=== PATIENT | female | born 1960 | race Two or more races ===

== ENCOUNTER 2016-10-14 01:56 | Emergency (ER) | payer OTHER ==
[~2016-10-14 01:56] MED LIST: ALBUPOW26; AMBIEN; GLYPIZIDE; LAMOTRIGINE; LISIPOW; LORA-205; OMEPRAZOLE; [UNRECOGNIZED DRUG - OTHER]
== END 2016-10-14 02:30 | disposition left against medical advice (07) ==
LOC: EDBD 01:56 → ER 02:01
DX: R55 Syncope and collapse (principal); Z53.21 Procedure and treatment not carried out due to patient leaving prior to being seen by health care provider
CPT/HCPCS: 93005

== ENCOUNTER → 2017-04-05 | Outpatient (CLI) | payer OTHER ==
[~2017-04-05] MED LIST changes: -AMBIEN; +ATOR20TA PO; +CYCL1TAB18 PO; -GLYPIZIDE; +INSUINJ18 BC; +INSUINJ18 SC; +LAMO150T26 PO; -LAMOTRIGINE; +LEVO88TA4 PO; -LISIPOW; +LISIPOW PO; -LORA-205; +LORA-205 PO; +MONT10TA34 OR; -OMEPRAZOLE; +PANT40TA2 PO; +TIOT1AER IN; +TRAZ100T2 PO; +TRAZ50TA2 PO; -[UNRECOGNIZED DRUG - OTHER]
[2017-04-06 09:08] LABS: Hepatitis B Surface Antibody Negative
[2017-04-06 09:33] LABS: Hepatitis B Surface Antigen Negative (Negative)
[2017-04-06 09:40] LABS: Hepatitis B Core IgM Negative; Hepatitis C Antibody Negative (Negative)
[2017-04-06 09:41] LABS: Hepatitis B Core Total AB Negative
[2017-04-06 09:55] LABS: Free T4 (Free Thyroxine) 1.06 ng/dL (0.89-1.76)
== END | disposition home or self-care (01) ==
LOC: LAB 12:27
PROVIDERS: ATTEND Internal Medicine
DX: E11.22 Type 2 diabetes mellitus with diabetic chronic kidney disease (principal); N18.3 Chronic kidney disease, stage 3 (moderate); R10.9 Unspecified abdominal pain
CPT/HCPCS: 36415; 82043; 82565; 82607; 84439; 84443; 84520; 86704; 86705; 86706; 86803; 87340

== ENCOUNTER → 2017-09-11 | Outpatient (CLI) | payer OTHER ==
[2017-09-11 16:14] LABS: Albumin 3.9 g/dL (3.4-5.0); BUN/Creatinine Ratio 10.9; Bilirubin, Total 0.2 mg/dL (0.2-1.0); Potassium 4.4 mmol/L (3.5-5.1); Total Protein 7.5 g/dL (6.4-8.2)
== END | disposition home or self-care (01) ==
LOC: LAB 15:28
PROVIDERS: ATTEND Internal Medicine
DX: I12.9 Hypertensive chronic kidney disease with stage 1 through stage 4 chronic kidney disease, or unspecified chronic kidney disease (principal); E11.22 Type 2 diabetes mellitus with diabetic chronic kidney disease; N18.3 Chronic kidney disease, stage 3 (moderate); E11.40 Type 2 diabetes mellitus with diabetic neuropathy, unspecified; F60.3 Borderline personality disorder; F41.9 Anxiety disorder, unspecified; Z79.899 Other long term (current) drug therapy; Z79.4 Long term (current) use of insulin
CPT/HCPCS: 36415; 80053; 83036; 83970; 84443

== ENCOUNTER 2017-12-05 10:22 | Emergency (ER) | payer OTHER ==
[~2017-12-05] VITALS: Ht 149.9 cm; Wt 67.6 kg
[2017-12-05 11:28] LABS: Urine WBC None Seen /hpf (0 - 5)
[2017-12-05] MEDS ORDERED: methylPREDNISolone SOD SUCC 125 MG/2 ML VL IV ONE (11:30)
[2017-12-05] MEDS ORDERED: IPRATROPIUM BROM 0.5 MG/2.5ML INH SOL NEB ONE (11:30)
[2017-12-05] MEDS ORDERED: ALBUTEROL SULF 2.5 MG/0.5ML(0.5%) NEB SOLN NEB ONE (11:30)
[2017-12-05 11:35] LABS: Basophils # (auto) 0.1 uL; Eosinophils # (auto) 0.3 uL; Eosinophils % (auto) 3.7 % (0.0-7.0); Hematocrit 42.9 % (36.0-46.0); Hemoglobin 13.9 g/dL (12.2-16.2); Lymphocytes # (auto) 1.2 uL; Lymphocytes % (auto) 15.1 % (10.0-50.0); Mean Corpuscular Hgb Conc. 32.3 g/dL (32.0-36.0); Mean Corpuscular Volume 89.8 fL (80.0-100.0); Monocytes # (auto) 0.3 uL; Monocytes % (auto) 4.5 % (0.0-12.0); Neutrophils # (auto) 5.8 uL; Neutrophils % (auto) 75.7 % (37.0-80.0); Platelet Count (auto) 271 10^3/uL (140-450); Red Blood Cells 4.78 10^6/uL (4.0-5.20); Red Cell Distribution Width 15.2 % (11.8-14.3); White Blood Cell 7.7 10^3/uL (4.4-10.8)
[2017-12-05 11:52] LABS: Urine Bacteria NONE SEEN /hpf (None Seen); Urine Blood Negative /uL (Negative); Urine Mucus FEW (None Seen); Urine Specific Gravity 1.024 (1.001-1.035)
[2017-12-05 12:01] LABS: Alanine Aminotransferase 48 U/L (13-56); Albumin 3.9 g/dL (3.4-5.0); Alkaline Phosphatase 108 U/L (45-117); Anion Gap 6 (5-15); Aspartate Aminotransferase 26 U/L (15-37); BUN/Creatinine Ratio 9.6; Bilirubin, Total 0.3 mg/dL (0.2-1.0); Blood Urea Nitrogen 12 mg/dL (7-18); Calcium 8.9 mg/dL (8.5-10.1); Carbon Dioxide 28 mmol/L (21-32); Chloride 105 mmol/L (98-107); GFR African American 57 mL/min; GFR Non-African American 47 mL/min; Glucose 228 mg/dL (74-106); Magnesium 2.2 mg/dL (1.6-2.6); Potassium 4.3 mmol/L (3.5-5.1); Sodium 139 mmol/L (136-145); Total Protein 7.6 g/dL (6.4-8.2)
[2017-12-05 13:06] VITALS: BP 135/77
== END 2017-12-05 14:30 | disposition home or self-care (01) ==
LOC: ER 10:22
DX: J44.9 Chronic obstructive pulmonary disease, unspecified (principal); E11.9 Type 2 diabetes mellitus without complications; E78.5 Hyperlipidemia, unspecified; I10 Essential (primary) hypertension; E07.9 Disorder of thyroid, unspecified; F17.210 Nicotine dependence, cigarettes, uncomplicated
CPT/HCPCS: 36415; 71046; 80053; 81001; 83735; 84484; 85025; 94640; 94761; 96374; 99285; J2930; J7611; J7644

== ENCOUNTER → 2017-12-12 | Outpatient (CLI) | payer OTHER | END | disposition home or self-care (01) | LOC: LAB 11:42 | PROVIDERS: ATTEND Internal Medicine | DX: R07.9 Chest pain, unspecified (principal) | CPT/HCPCS: 36415; 85379 ==

== ENCOUNTER 2018-01-01 11:55 | Inpatient (IN) | payer OTHER ==
[~2018-01-01] VITALS: Ht 149.9 cm; Wt 70.2 kg
[2018-01-01 13:18] LABS: Basophils # (auto) 0.1 uL; Basophils % (auto) 0.8 % (0.0-2.0); Eosinophils # (auto) 0.6 uL; Eosinophils % (auto) 4.4 % (0.0-7.0); Hematocrit 45.5 % (36.0-46.0); Hemoglobin 14.9 g/dL (12.2-16.2); Lymphocytes # (auto) 1.5 uL; Lymphocytes % (auto) 10.6 % (10.0-50.0); Mean Corpuscular Hemoglobin 29.7 pg (28.0-32.0); Mean Corpuscular Hgb Conc. 32.7 g/dL (32.0-36.0); Mean Corpuscular Volume 90.9 fL (80.0-100.0); Monocytes # (auto) 0.9 uL; Monocytes % (auto) 6.7 % (0.0-12.0); Neutrophils % (auto) 77.5 % (37.0-80.0); Platelet Count (auto) 199 10^3/uL (140-450); Red Blood Cells 5.01 10^6/uL (4.0-5.20); Red Cell Distribution Width 14.9 % (11.8-14.3); White Blood Cell 14.2 10^3/uL (4.4-10.8)
[2018-01-01 13:53] LABS: Albumin 3.8 g/dL (3.4-5.0); Anion Gap 6 (5-15); Blood Urea Nitrogen 12 mg/dL (7-18); Calcium 8.9 mg/dL (8.5-10.1); Carbon Dioxide 29 mmol/L (21-32); Chloride 100 mmol/L (98-107); Glucose 281 mg/dL (74-106); Potassium 4.1 mmol/L (3.5-5.1); Sodium 135 mmol/L (136-145)
[2018-01-01 13:59] LABS: Alanine Aminotransferase 44 U/L (13-56); Alkaline Phosphatase 108 U/L (45-117); Aspartate Aminotransferase 17 U/L (15-37); BUN/Creatinine Ratio 8.5; Bilirubin, Total 0.5 mg/dL (0.2-1.0); GFR African American 49 mL/min; GFR Non-African American 41 mL/min; Total Protein 7.3 g/dL (6.4-8.2)
[2018-01-01] MEDS ORDERED: methylPREDNISolone SOD SUCC 125 MG/2 ML VL IV ONE (14:00)
[2018-01-01] MEDS ORDERED: ALBUTEROL SULF 2.5 MG/0.5ML(0.5%) NEB SOLN HHN ONE (14:00)
[2018-01-01] MEDS ORDERED: IPRATROPIUM BROM 0.5 MG/2.5ML INH SOL HHN ONE (14:00)
[2018-01-01] MEDS ORDERED: HYDROcodone-ACET 5/325MG TAB PO PRN (14:30)
[2018-01-01] MEDS ORDERED: DEXTROSE (50%) 50ML SYRG IV PRN ×2 (14:30→19:30)
[2018-01-01] MEDS ORDERED: cefTRIAXone 1GM/50ML D5W 50 ML IV ONE (15:00)
[2018-01-01] MEDS: SODIUM CHLORIDE 0.9% 1,000 ML IV SCH (15:02)
[2018-01-01] MEDS ORDERED: AZITHROMYCIN 500MG/ 250ML 250 ML IV ONE (15:30)
[2018-01-01] MEDS: PANTOPRAZOLE 40 MG TAB PO SCH (15:33)
[2018-01-01] MEDS ORDERED: ACCU-CHEK COMFORT CURVE STRIP VI SCH (17:00)
[2018-01-01] MEDS ORDERED: InsuLIN REG 1unit/0.01ml Soln (100units/ml) SC SCH ×2 (17:00→22:00)
[2018-01-01 17:23] LABS: Urine Bacteria NONE SEEN /hpf (None Seen); Urine Blood Negative /uL (Negative); Urine Specific Gravity 1.024 (1.001-1.035); Urine WBC 11 /hpf (0 - 5)
[2018-01-01] MEDS: ALBUTEROL SULF 2.5 MG/0.5ML(0.5%) NEB SOLN NEB SCH (18:35)
[2018-01-01] MEDS: IPRATROPIUM BROM 0.5 MG/2.5ML INH SOL NEB SCH (18:35)
[2018-01-01 20:00] VITALS: BP 108/63
[2018-01-01] MEDS: ACCU-CHEK COMFORT CURVE STRIP VI SCH ×2 (20:28→23:45)
[2018-01-01] MEDS: InsuLIN REG 1unit/0.01ml Soln (100units/ml) SC SCH ×2 (20:32→23:57)
[2018-01-01 20:55] VITALS: BP 128/78
[2018-01-01] MEDS: methylPREDNISolone SOD SUCC 40 MG/ML VL IV SCH (21:27)
[2018-01-01] MEDS: ATORVASTATIN 20 MG TAB PO SCH (21:28)
[2018-01-01] MEDS: traZODone HCL 50 MG TAB PO SCH (21:28)
[2018-01-01] MEDS: LORazepam 0.5 MG TAB PO PRN (21:28)
[2018-01-01] MEDS: MONTELUKAST SODIUM 10 MG TAB PO SCH (21:29)
[2018-01-01 22:00] VITALS: BP 128/78
[2018-01-01] MEDS: BUDESONIDE (INHALATION) 0.5 MG/2 ML NEB NEB SCH (22:23)
[2018-01-01] MEDS ORDERED: GLIP-116 PO (23:32)
[2018-01-02] MEDS: ACCU-CHEK COMFORT CURVE STRIP VI SCH ×8 (03:59→20:03)
[2018-01-02] MEDS: InsuLIN REG 1unit/0.01ml Soln (100units/ml) SC SCH ×5 (03:59→20:00)
[2018-01-02 05:00] VITALS: BP 127/82
[2018-01-02] MEDS: methylPREDNISolone SOD SUCC 40 MG/ML VL IV SCH ×2 (05:38→21:57)
[2018-01-02] MEDS: IPRATROPIUM BROM 0.5 MG/2.5ML INH SOL NEB SCH ×4 (05:58→18:59)
[2018-01-02] MEDS: ALBUTEROL SULF 2.5 MG/0.5ML(0.5%) NEB SOLN NEB SCH ×4 (05:58→18:59)
[2018-01-02 06:00] LABS: Hematocrit 39.8 % (36.0-46.0); Mean Corpuscular Hemoglobin 29.4 pg (28.0-32.0); Mean Corpuscular Hgb Conc. 32.7 g/dL (32.0-36.0); Mean Corpuscular Volume 89.9 fL (80.0-100.0); Platelet Count (auto) 184 10^3/uL (140-450); Red Blood Cells 4.43 10^6/uL (4.0-5.20); Red Cell Distribution Width 14.5 % (11.8-14.3)
[2018-01-02 06:22] LABS: Basophils % (manual) 0 (0.0-2.0); Blast Cells 0; Calcium 8.7 mg/dL (8.5-10.1); Eosinophils % (manual) 0 (0-7); Metamyelocytes % 0; Myelocytes % 0; Potassium 4.2 mmol/L (3.5-5.1); Promyelocytes % 0; Reactive Lymphocytes 0
[2018-01-02 06:25] LABS: BUN/Creatinine Ratio 12.5
[2018-01-02 06:48] LABS: Band Neutrophils % (manual) 2; Lymphocytes % (manual) 2 (10.0-50.0); Monocytes % (manual) 2 (0-12)
[2018-01-02] MEDS: LEVOTHYROXINE SODIUM 88 MCG TAB PO SCH (07:15)
[2018-01-02] MEDS: cefTRIAXone 1GM/50ML D5W 50 ML IV SCH (08:01)
[2018-01-02 09:00] VITALS: BP 130/80
[2018-01-02] MEDS: ONDANSETRON HCL 4 MG/2 ML VIAL IV PRN ×2 (09:50→17:36)
[2018-01-02] MEDS: LORazepam 0.5 MG TAB PO PRN ×2 (09:50→22:09)
[2018-01-02] MEDS: BUDESONIDE (INHALATION) 0.5 MG/2 ML NEB NEB SCH ×2 (09:52→18:59)
[2018-01-02] MEDS: PANTOPRAZOLE 40 MG TAB PO SCH (09:54)
[2018-01-02] MEDS: AZITHROMYCIN 500MG/ 250ML 250 ML IV SCH (09:56)
[2018-01-02] MEDS: LISINOPRIL 10 MG TAB PO SCH (09:56)
[2018-01-02] MEDS: SODIUM CHLORIDE 0.9% 1,000 ML IV SCH (09:57)
[2018-01-02] MEDS ORDERED: DEXTROSE (50%) 50ML SYRG IV PRN (11:45)
[2018-01-02 13:00] VITALS: BP 156/83
[2018-01-02] MEDS: MORPHINE SULFATE 4 MG/ML SYR/VIAL IV PRN (14:49)
[2018-01-02 17:00] VITALS: BP 143/88
[2018-01-02] MEDS: glipiZIDE 5 MG TAB PO SCH (18:02)
[2018-01-02] MEDS: traZODone HCL 50 MG TAB PO SCH (21:58)
[2018-01-02] MEDS: ATORVASTATIN 20 MG TAB PO SCH (21:58)
[2018-01-02] MEDS: MONTELUKAST SODIUM 10 MG TAB PO SCH (21:58)
[2018-01-02 22:10] VITALS: BP 143/85
[2018-01-03] MEDS: InsuLIN REG 1unit/0.01ml Soln (100units/ml) SC SCH ×7 (00:20→23:59)
[2018-01-03] MEDS: ACCU-CHEK COMFORT CURVE STRIP VI SCH ×12 (00:20→23:58)
[2018-01-03] MEDS: PROMETHAZINE HCL 25 MG/ML 1ML IV PRN ×2 (00:21→12:27)
[2018-01-03] MEDS: SODIUM CHLORIDE 0.9% 1,000 ML IV SCH (03:19)
[2018-01-03 04:36] VITALS: BP 120/86
[2018-01-03] MEDS: IPRATROPIUM BROM 0.5 MG/2.5ML INH SOL NEB SCH ×4 (06:21→18:46)
[2018-01-03] MEDS: ALBUTEROL SULF 2.5 MG/0.5ML(0.5%) NEB SOLN NEB SCH ×4 (06:21→18:46)
[2018-01-03] MEDS: glipiZIDE 5 MG TAB PO SCH ×2 (06:55→17:50)
[2018-01-03] MEDS: LEVOTHYROXINE SODIUM 88 MCG TAB PO SCH (06:56)
[2018-01-03] MEDS: cefTRIAXone 1GM/50ML D5W 50 ML IV SCH (08:01)
[2018-01-03 09:00] VITALS: BP 130/69
[2018-01-03] MEDS: AZITHROMYCIN 500MG/ 250ML 250 ML IV SCH (10:08)
[2018-01-03] MEDS: methylPREDNISolone SOD SUCC 40 MG/ML VL IV SCH (10:08)
[2018-01-03] MEDS: PANTOPRAZOLE 40 MG TAB PO SCH (10:09)
[2018-01-03] MEDS: LISINOPRIL 10 MG TAB PO SCH (10:11)
[2018-01-03] MEDS: BUDESONIDE (INHALATION) 0.5 MG/2 ML NEB NEB SCH ×2 (10:16→18:46)
[2018-01-03] MEDS: LORazepam 0.5 MG TAB PO PRN ×2 (12:28→21:31)
[2018-01-03 13:00] VITALS: BP 126/75
[2018-01-03 17:54] VITALS: BP 130/84
[2018-01-03] MEDS: traZODone HCL 50 MG TAB PO SCH (21:23)
[2018-01-03] MEDS: ATORVASTATIN 20 MG TAB PO SCH (21:23)
[2018-01-03] MEDS: MONTELUKAST SODIUM 10 MG TAB PO SCH (21:24)
[2018-01-03 22:00] VITALS: BP 132/77
[2018-01-04] MEDS: InsuLIN REG 1unit/0.01ml Soln (100units/ml) SC SCH ×6 (04:00→23:56)
[2018-01-04] MEDS: ACCU-CHEK COMFORT CURVE STRIP VI SCH ×6 (04:02→23:56)
[2018-01-04 05:00] VITALS: BP 122/75
[2018-01-04] MEDS: ALBUTEROL SULF 2.5 MG/0.5ML(0.5%) NEB SOLN NEB SCH ×4 (06:00→19:13)
[2018-01-04] MEDS: IPRATROPIUM BROM 0.5 MG/2.5ML INH SOL NEB SCH ×4 (06:00→19:13)
[2018-01-04] MEDS: glipiZIDE 5 MG TAB PO SCH ×2 (06:34→17:50)
[2018-01-04] MEDS: LEVOTHYROXINE SODIUM 88 MCG TAB PO SCH (06:34)
[2018-01-04 08:00] VITALS: BP 108/72
[2018-01-04] MEDS: cefTRIAXone 1GM/50ML D5W 50 ML IV SCH (08:32)
[2018-01-04 08:38] VITALS: BP 108/72
[2018-01-04] MEDS: PANTOPRAZOLE 40 MG TAB PO SCH (09:45)
[2018-01-04] MEDS: AZITHROMYCIN 250 MG TAB PO SCH (09:45)
[2018-01-04] MEDS: predniSONE 20 MG TAB PO SCH (09:45)
[2018-01-04] MEDS: LISINOPRIL 10 MG TAB PO SCH (09:45)
[2018-01-04] MEDS: LORazepam 0.5 MG TAB PO PRN ×2 (10:18→21:31)
[2018-01-04] MEDS: BUDESONIDE (INHALATION) 0.5 MG/2 ML NEB NEB SCH ×2 (10:30→19:13)
[2018-01-04 12:00] VITALS: BP 122/81
[2018-01-04 16:26] VITALS: BP 124/76
[2018-01-04] MEDS: MONTELUKAST SODIUM 10 MG TAB PO SCH (21:30)
[2018-01-04] MEDS: ATORVASTATIN 20 MG TAB PO SCH (21:30)
[2018-01-04] MEDS: traZODone HCL 50 MG TAB PO SCH (21:30)
[2018-01-04 22:00] VITALS: BP 136/80
[2018-01-05] MEDS: ACCU-CHEK COMFORT CURVE STRIP VI SCH ×6 (03:55→23:48)
[2018-01-05] MEDS: InsuLIN REG 1unit/0.01ml Soln (100units/ml) SC SCH ×6 (03:56→23:48)
[2018-01-05 05:00] VITALS: BP 126/69
[2018-01-05] MEDS: glipiZIDE 5 MG TAB PO SCH ×2 (05:48→17:50)
[2018-01-05] MEDS: LEVOTHYROXINE SODIUM 88 MCG TAB PO SCH (05:48)
[2018-01-05] MEDS: ALBUTEROL SULF 2.5 MG/0.5ML(0.5%) NEB SOLN NEB SCH ×6 (05:49→18:24)
[2018-01-05] MEDS: IPRATROPIUM BROM 0.5 MG/2.5ML INH SOL NEB SCH ×6 (05:49→18:24)
[2018-01-05] MEDS: BUDESONIDE (INHALATION) 0.5 MG/2 ML NEB NEB SCH ×3 (05:49→18:24)
[2018-01-05 08:31] VITALS: BP 136/80
[2018-01-05] MEDS: MORPHINE SULFATE 4 MG/ML SYR/VIAL IV PRN (08:43)
[2018-01-05 09:00] VITALS: BP 130/75
[2018-01-05] MEDS: cefTRIAXone 1GM/50ML D5W 50 ML IV SCH (10:20)
[2018-01-05] MEDS: LISINOPRIL 10 MG TAB PO SCH (10:23)
[2018-01-05] MEDS: PANTOPRAZOLE 40 MG TAB PO SCH (10:23)
[2018-01-05] MEDS: AZITHROMYCIN 250 MG TAB PO SCH (10:24)
[2018-01-05] MEDS: predniSONE 20 MG TAB PO SCH (10:25)
[2018-01-05 13:00] VITALS: BP 129/74
[2018-01-05] MEDS: PROMETHAZINE HCL 25 MG/ML 1ML IV PRN (13:17)
[2018-01-05] MEDS ORDERED: DEXTROSE (50%) 50ML SYRG IV PRN (17:30)
[2018-01-05] MEDS ORDERED: InsuLIN REG 1unit/0.01ml Soln (100units/ml) IV ONE (17:45)
[2018-01-05 17:58] VITALS: BP 129/74
[2018-01-05] MEDS: LORazepam 0.5 MG TAB PO PRN (21:13)
[2018-01-05] MEDS: ATORVASTATIN 20 MG TAB PO SCH (21:14)
[2018-01-05] MEDS: MONTELUKAST SODIUM 10 MG TAB PO SCH (21:14)
[2018-01-05] MEDS: traZODone HCL 50 MG TAB PO SCH (21:15)
[2018-01-05 22:05] VITALS: BP 109/74
[2018-01-06] MEDS: InsuLIN REG 1unit/0.01ml Soln (100units/ml) SC SCH ×5 (04:00→17:00)
[2018-01-06] MEDS: ACCU-CHEK COMFORT CURVE STRIP VI SCH ×6 (04:00→23:04)
[2018-01-06 05:10] VITALS: BP 129/80
[2018-01-06] MEDS: LEVOTHYROXINE SODIUM 88 MCG TAB PO SCH (06:31)
[2018-01-06] MEDS: glipiZIDE 5 MG TAB PO SCH ×2 (06:31→17:27)
[2018-01-06] MEDS: IPRATROPIUM BROM 0.5 MG/2.5ML INH SOL NEB SCH ×5 (06:37→18:54)
[2018-01-06] MEDS: ALBUTEROL SULF 2.5 MG/0.5ML(0.5%) NEB SOLN NEB SCH ×5 (06:38→18:54)
[2018-01-06 08:51] VITALS: BP 112/75
[2018-01-06] MEDS: LORazepam 0.5 MG TAB PO PRN ×2 (09:15→19:50)
[2018-01-06] MEDS: cefTRIAXone 1GM/50ML D5W 50 ML IV SCH (09:15)
[2018-01-06] MEDS: AZITHROMYCIN 250 MG TAB PO SCH (09:22)
[2018-01-06] MEDS: PANTOPRAZOLE 40 MG TAB PO SCH (09:22)
[2018-01-06] MEDS: predniSONE 20 MG TAB PO SCH (09:22)
[2018-01-06] MEDS: LISINOPRIL 10 MG TAB PO SCH (09:23)
[2018-01-06] MEDS: BUDESONIDE (INHALATION) 0.5 MG/2 ML NEB NEB SCH ×2 (10:00→19:10)
[2018-01-06 13:05] VITALS: BP 102/68
[2018-01-06] MEDS ORDERED: HYDROcodone-ACET 5/325MG TAB PO PRN (16:45)
[2018-01-06] MEDS ORDERED: MORPHINE SULFATE 4 MG/ML SYR/VIAL IV PRN (16:45)
[2018-01-06] MEDS ORDERED: DEXTROSE (50%) 50ML SYRG IV PRN (16:45)
[2018-01-06 17:00] VITALS: BP 125/76
[2018-01-06] MEDS: traZODone HCL 50 MG TAB PO SCH (21:48)
[2018-01-06] MEDS: ATORVASTATIN 20 MG TAB PO SCH (21:48)
[2018-01-06] MEDS: lamoTRIgine 100 MG TAB PO SCH (21:50)
[2018-01-06] MEDS: MONTELUKAST SODIUM 10 MG TAB PO SCH (21:55)
[2018-01-06] MEDS ORDERED: InsuLIN REG 1unit/0.01ml Soln (100units/ml) SC SCH (22:00)
[2018-01-06 22:20] VITALS: BP 121/83
[2018-01-07 05:04] VITALS: BP 130/77
[2018-01-07] MEDS: ACCU-CHEK COMFORT CURVE STRIP VI SCH ×4 (06:00→22:51)
[2018-01-07] MEDS: LEVOTHYROXINE SODIUM 88 MCG TAB PO SCH (06:12)
[2018-01-07] MEDS: glipiZIDE 5 MG TAB PO SCH ×2 (06:12→17:06)
[2018-01-07] MEDS: InsuLIN REG 1unit/0.01ml Soln (100units/ml) SC SCH ×5 (06:13→22:51)
[2018-01-07] MEDS: ALBUTEROL SULF 2.5 MG/0.5ML(0.5%) NEB SOLN NEB SCH ×4 (06:18→18:56)
[2018-01-07] MEDS: BUDESONIDE (INHALATION) 0.5 MG/2 ML NEB NEB SCH ×2 (06:18→18:57)
[2018-01-07] MEDS: IPRATROPIUM BROM 0.5 MG/2.5ML INH SOL NEB SCH ×4 (06:18→18:56)
[2018-01-07 08:53] VITALS: BP 107/52
[2018-01-07 08:53] LABS: Urine Bacteria NONE SEEN /hpf (None Seen); Urine Blood Negative /uL (Negative); Urine Specific Gravity 1.031 (1.001-1.035); Urine WBC 6 /hpf (0 - 5)
[2018-01-07] MEDS ORDERED: SERTRALINE HCL 50 MG TAB PO SCH (10:00)
[2018-01-07] MEDS: predniSONE 20 MG TAB PO SCH (10:28)
[2018-01-07] MEDS: AZITHROMYCIN 250 MG TAB PO SCH (10:29)
[2018-01-07] MEDS: LISINOPRIL 10 MG TAB PO SCH (10:32)
[2018-01-07] MEDS: LORazepam 0.5 MG TAB PO PRN ×2 (11:16→23:00)
[2018-01-07] MEDS: PANTOPRAZOLE 40 MG TAB PO SCH (11:22)
[2018-01-07 12:48] VITALS: BP 99/53
[2018-01-07 16:54] VITALS: BP 101/58
[2018-01-07] MEDS ORDERED: InsuLIN REG 1unit/0.01ml Soln (100units/ml) IV ONE (17:15)
[2018-01-07] MEDS ORDERED: InsuLIN REG 1unit/0.01ml Soln (100units/ml) SC ONE ×2 (17:15→17:30)
[2018-01-07] MEDS ORDERED: DEXTROSE (50%) 50ML SYRG IV PRN (17:30)
[2018-01-07 22:00] VITALS: BP 116/72
[2018-01-07] MEDS: lamoTRIgine 100 MG TAB PO SCH (22:52)
[2018-01-07] MEDS: traZODone HCL 50 MG TAB PO SCH (22:52)
[2018-01-07] MEDS: ATORVASTATIN 20 MG TAB PO SCH (22:52)
[2018-01-07] MEDS: MONTELUKAST SODIUM 10 MG TAB PO SCH (22:53)
[2018-01-08] MEDS: LORazepam 0.5 MG TAB PO PRN ×3 (00:34→21:50)
[2018-01-08] MEDS: ACCU-CHEK COMFORT CURVE STRIP VI SCH ×6 (00:48→20:51)
[2018-01-08] MEDS: InsuLIN REG 1unit/0.01ml Soln (100units/ml) SC SCH ×6 (00:57→20:50)
[2018-01-08 05:00] VITALS: BP 124/86
[2018-01-08] MEDS: glipiZIDE 5 MG TAB PO SCH ×2 (06:24→18:05)
[2018-01-08] MEDS: ALBUTEROL SULF 2.5 MG/0.5ML(0.5%) NEB SOLN NEB SCH ×4 (06:30→18:36)
[2018-01-08] MEDS: IPRATROPIUM BROM 0.5 MG/2.5ML INH SOL NEB SCH ×4 (06:30→18:36)
[2018-01-08 09:00] VITALS: BP 92/56
[2018-01-08] MEDS: AZITHROMYCIN 250 MG TAB PO SCH (09:25)
[2018-01-08] MEDS: predniSONE 20 MG TAB PO SCH (09:26)
[2018-01-08] MEDS: LISINOPRIL 10 MG TAB PO SCH (09:26)
[2018-01-08] MEDS: PANTOPRAZOLE 40 MG TAB PO SCH (09:26)
[2018-01-08] MEDS: BUDESONIDE (INHALATION) 0.5 MG/2 ML NEB NEB SCH ×2 (10:22→18:36)
[2018-01-08 13:00] VITALS: BP 101/61
[2018-01-08 17:00] VITALS: BP 114/56
[2018-01-08 20:00] VITALS: BP 105/62
[2018-01-08] MEDS: ATORVASTATIN 20 MG TAB PO SCH (21:49)
[2018-01-08] MEDS: lamoTRIgine 100 MG TAB PO SCH (21:49)
[2018-01-08] MEDS: traZODone HCL 50 MG TAB PO SCH (21:49)
[2018-01-08] MEDS: MONTELUKAST SODIUM 10 MG TAB PO SCH (21:49)
[2018-01-08 22:00] VITALS: BP 105/62
[2018-01-09] MEDS: InsuLIN REG 1unit/0.01ml Soln (100units/ml) SC SCH ×4 (00:18→11:41)
[2018-01-09] MEDS: ACCU-CHEK COMFORT CURVE STRIP VI SCH ×4 (00:18→11:41)
[2018-01-09 05:00] VITALS: BP 116/75
[2018-01-09] MEDS: ALBUTEROL SULF 2.5 MG/0.5ML(0.5%) NEB SOLN NEB SCH ×3 (05:55→13:49)
[2018-01-09] MEDS: IPRATROPIUM BROM 0.5 MG/2.5ML INH SOL NEB SCH ×3 (05:55→13:49)
[2018-01-09] MEDS: glipiZIDE 5 MG TAB PO SCH (06:37)
[2018-01-09] MEDS: LEVOTHYROXINE SODIUM 88 MCG TAB PO SCH (06:37)
[2018-01-09 08:00] VITALS: BP 112/61
[2018-01-09 09:00] VITALS: BP 111/78
[2018-01-09] MEDS: BUDESONIDE (INHALATION) 0.5 MG/2 ML NEB NEB SCH (09:51)
[2018-01-09] MEDS ORDERED: predniSONE 20 MG TAB PO SCH (10:00)
[2018-01-09] MEDS: PANTOPRAZOLE 40 MG TAB PO SCH (10:12)
[2018-01-09] MEDS: AZITHROMYCIN 250 MG TAB PO SCH (10:13)
[2018-01-09] MEDS: LISINOPRIL 10 MG TAB PO SCH (10:15)
[2018-01-09] MEDS: LORazepam 0.5 MG TAB PO PRN (10:23)
[2018-01-09 12:15] VITALS: BP 110/69
[2018-01-09 13:00] VITALS: BP 110/69
== END 2018-01-09 14:09 | disposition home or self-care (01) | DRG 193 ==
LOC: ER 11:55 → OVERFLOW 11:56 → WEST WING 20:50
PROVIDERS: ADMIT Internal Medicine; ATTEND Internal Medicine
DX: J18.9 Pneumonia, unspecified organism (principal); J96.20 Acute and chronic respiratory failure, unspecified whether with hypoxia or hypercapnia; J45.902 Unspecified asthma with status asthmaticus; J44.0 Chronic obstructive pulmonary disease with (acute) lower respiratory infection; J44.1 Chronic obstructive pulmonary disease with (acute) exacerbation; N18.3 Chronic kidney disease, stage 3 (moderate); E03.9 Hypothyroidism, unspecified; F41.9 Anxiety disorder, unspecified; F32.9 Major depressive disorder, single episode, unspecified; E11.65 Type 2 diabetes mellitus with hyperglycemia; Z88.8 Allergy status to other drugs, medicaments and biological substances; Z91.012 Allergy to eggs; E11.22 Type 2 diabetes mellitus with diabetic chronic kidney disease; I12.9 Hypertensive chronic kidney disease with stage 1 through stage 4 chronic kidney disease, or unspecified chronic kidney disease; Z87.891 Personal history of nicotine dependence; Z99.81 Dependence on supplemental oxygen; R91.1 Solitary pulmonary nodule; J84.10 Pulmonary fibrosis, unspecified
CPT/HCPCS: 36415; 71046; 71250; 80048; 80053; 81001; 82962; 83036; 83605; 83880; 84443; 84484; 85007; 85025; 85027; 87040; 87086; 94640; 94644; 94660; 96374; 96375; G0378; J0696; J1815; J2405

== ENCOUNTER → 2018-02-21 | Outpatient (CLI) | payer OTHER ==
[~2018-02-21] MED LIST changes: +GLIP-116 PO; -INSUINJ18 BC; -INSUINJ18 SC; -TRAZ50TA2 PO
== END | disposition home or self-care (01) ==
LOC: XYW 09:10
PROVIDERS: ATTEND Internal Medicine Cardiovascular Disease
DX: R00.2 Palpitations (principal)
CPT/HCPCS: 93306

== ENCOUNTER 2018-05-28 14:23 | Emergency (ER) | payer OTHER ==
[~2018-05-28] VITALS: Ht 149.9 cm; Wt 67.1 kg
[2018-05-28] MEDS ORDERED: methylPREDNISolone SOD SUCC 125 MG/2 ML VL IM ONE (15:45)
[2018-05-28] MEDS ORDERED: ALBUTEROL SULF 2.5 MG/0.5ML(0.5%) NEB SOLN NEB ONE (15:45)
[2018-05-28] MEDS ORDERED: IPRATROPIUM BROM 0.5 MG/2.5ML INH SOL NEB ONE (15:45)
[2018-05-28 16:23] LABS: Albumin 4.1 g/dL (3.4-5.0); Anion Gap 5 (5-15); Blood Urea Nitrogen 15 mg/dL (7-18); Calcium 9.4 mg/dL (8.5-10.1); Carbon Dioxide 32 mmol/L (21-32); Chloride 102 mmol/L (98-107); Glucose 79 mg/dL (74-106); Sodium 139 mmol/L (136-145)
[2018-05-28 16:28] LABS: Alanine Aminotransferase 27 U/L (13-56); Alkaline Phosphatase 101 U/L (45-117); Aspartate Aminotransferase 19 U/L (15-37); BUN/Creatinine Ratio 12.8; Bilirubin, Total 0.2 mg/dL (0.2-1.0); GFR African American 61 mL/min; GFR Non-African American 51 mL/min; Total Protein 7.8 g/dL (6.4-8.2)
[2018-05-28 16:44] LABS: Basophils # (auto) 0.1 uL; Basophils % (auto) 1.1 % (0.0-2.0); Eosinophils # (auto) 0.4 uL; Eosinophils % (auto) 6.3 % (0.0-7.0); Hematocrit 44.5 % (36.0-46.0); Hemoglobin 14.3 g/dL (12.2-16.2); Lymphocytes # (auto) 1.3 uL; Lymphocytes % (auto) 18.4 % (10.0-50.0); Mean Corpuscular Hemoglobin 29.1 pg (28.0-32.0); Mean Corpuscular Hgb Conc. 32.2 g/dL (32.0-36.0); Mean Corpuscular Volume 90.5 fL (80.0-100.0); Monocytes # (auto) 0.4 uL; Monocytes % (auto) 5.6 % (0.0-12.0); Neutrophils # (auto) 4.7 uL; Neutrophils % (auto) 68.6 % (37.0-80.0); Nucleated Red Blood Cells % 0.1 %; Platelet Count (auto) 244 10^3/uL (140-450); Red Blood Cells 4.91 10^6/uL (4.0-5.20); Red Cell Distribution Width 14.4 % (11.8-14.3); White Blood Cell 6.9 10^3/uL (4.4-10.8)
[2018-05-28 16:46] LABS: Urine Bacteria NONE SEEN /hpf (None Seen); Urine Blood Negative /uL (Negative); Urine Specific Gravity 1.012 (1.001-1.035); Urine WBC 7 /hpf (0 - 5)
[2018-05-28 21:03] VITALS: BP 131/73
== END 2018-05-28 21:18 | disposition home or self-care (01) ==
LOC: ER 14:25
DX: J44.9 Chronic obstructive pulmonary disease, unspecified (principal); N39.0 Urinary tract infection, site not specified; E11.9 Type 2 diabetes mellitus without complications; K21.9 Gastro-esophageal reflux disease without esophagitis; E78.5 Hyperlipidemia, unspecified; I10 Essential (primary) hypertension; E07.9 Disorder of thyroid, unspecified
CPT/HCPCS: 36415; 71046; 80053; 81001; 83880; 84484; 85025; 94640; 96372; 99284; J2930; J7611; J7644

== ENCOUNTER → 2018-11-26 | Outpatient (CLI) | payer OTHER ==
[~2018-11-26] MED LIST changes: -GLIP-116 PO; +GLIP10TA9 PO
[2018-11-26 11:42] LABS: Basophils # (auto) 0.1 uL; Basophils % (auto) 1.4 % (0.0-2.0); Eosinophils # (auto) 0.3 uL; Eosinophils % (auto) 5.7 % (0.0-7.0); Hematocrit 45.4 % (36.0-46.0); Hemoglobin 14.7 g/dL (12.2-16.2); Lymphocytes # (auto) 1.2 uL; Lymphocytes % (auto) 21.2 % (10.0-50.0); Mean Corpuscular Hemoglobin 28.6 pg (28.0-32.0); Mean Corpuscular Hgb Conc. 32.4 g/dL (32.0-36.0); Mean Corpuscular Volume 88.3 fL (80.0-100.0); Monocytes # (auto) 0.3 uL; Monocytes % (auto) 5.8 % (0.0-12.0); Neutrophils # (auto) 3.7 uL; Neutrophils % (auto) 65.9 % (37.0-80.0); Platelet Count (auto) 234 10^3/uL (140-450); Red Blood Cells 5.15 10^6/uL (4.0-5.20); Red Cell Distribution Width 14.8 % (11.8-14.3); White Blood Cell 5.5 10^3/uL (4.4-10.8)
[2018-11-26 12:13] LABS: Albumin 4.1 g/dL (3.4-5.0); Calcium 9.4 mg/dL (8.5-10.1); Potassium 3.8 mmol/L (3.5-5.1)
[2018-11-26 12:19] LABS: BUN/Creatinine Ratio 10.3; Bilirubin, Total 0.4 mg/dL (0.2-1.0); Total Protein 7.5 g/dL (6.4-8.2)
== END | disposition home or self-care (01) ==
LOC: LAB 10:58
PROVIDERS: ATTEND Internal Medicine
DX: I12.9 Hypertensive chronic kidney disease with stage 1 through stage 4 chronic kidney disease, or unspecified chronic kidney disease (principal); E11.22 Type 2 diabetes mellitus with diabetic chronic kidney disease; N18.3 Chronic kidney disease, stage 3 (moderate); E78.5 Hyperlipidemia, unspecified
CPT/HCPCS: 36415; 80053; 80061; 82043; 83036; 84443; 85025

== ENCOUNTER → 2018-12-10 | Outpatient (CLI) | payer OTHER | END | disposition home or self-care (01) | LOC: LAB 10:52 | PROVIDERS: ATTEND Internal Medicine | DX: I12.9 Hypertensive chronic kidney disease with stage 1 through stage 4 chronic kidney disease, or unspecified chronic kidney disease (principal); E11.22 Type 2 diabetes mellitus with diabetic chronic kidney disease; N18.3 Chronic kidney disease, stage 3 (moderate); E78.5 Hyperlipidemia, unspecified | CPT/HCPCS: 82270 ==

== ENCOUNTER 2019-01-11 08:06 | Day surgery (SDC) | payer OTHER ==
[2019-01-08 12:34] LABS: Basophils # (auto) 0.2 uL; Eosinophils # (auto) 0.3 uL; Eosinophils % (auto) 5.3 % (0.0-7.0); Hematocrit 43.4 % (36.0-46.0); Hemoglobin 14.3 g/dL (12.2-16.2); Lymphocytes # (auto) 1.4 uL; Lymphocytes % (auto) 23.3 % (10.0-50.0); Mean Corpuscular Hemoglobin 29.2 pg (28.0-32.0); Mean Corpuscular Volume 88.5 fL (80.0-100.0); Monocytes # (auto) 0.4 uL; Monocytes % (auto) 6.9 % (0.0-12.0); Neutrophils # (auto) 3.8 uL; Neutrophils % (auto) 61.5 % (37.0-80.0); Platelet Count (auto) 253 10^3/uL (140-450); Red Cell Distribution Width 14.6 % (11.8-14.3); White Blood Cell 6.2 10^3/uL (4.4-10.8)
[2019-01-08 12:47] LABS: INR 0.97 (0.9-1.15); Partial Thromboplastin Time 29.1 sec (23.64-32.05)
[~2019-01-11] VITALS: Ht 149.9 cm; Wt 65.8 kg
[~2019-01-11 08:06] MED LIST changes: +BUPR-40 PO; +FLUT250M2 INH; +INSLANTI SC
[2019-01-11] MEDS ORDERED: SODIUM CHLORIDE LOCK 10 ML ONE (08:17)
[2019-01-11] MEDS ORDERED: diphenhdrAMINE HCL 50 MG/1 ML VL ONE (08:18)
[2019-01-11] MEDS ORDERED: LIDOCAINE VISCOUS 2% 15ML UD ONE (09:03)
[2019-01-11] MEDS: MIDAZOLAM HCL 5 MG/ML-1ML VIAL ONE ×4 (10:27→10:41)
[2019-01-11] MEDS: fentaNYL CITRATE 100 MCG/2 ML VL ONE ×4 (10:27→10:41)
[2019-01-11 11:30] VITALS: BP 132/77
== END 2019-01-11 11:47 | disposition home or self-care (01) ==
LOC: GI 08:06
PROVIDERS: ATTEND Internal Medicine Gastroenterology
DX: Z12.11 Encounter for screening for malignant neoplasm of colon (principal); K57.30 Diverticulosis of large intestine without perforation or abscess without bleeding; K64.8 Other hemorrhoids; K29.50 Unspecified chronic gastritis without bleeding; K29.80 Duodenitis without bleeding; E11.22 Type 2 diabetes mellitus with diabetic chronic kidney disease; I12.9 Hypertensive chronic kidney disease with stage 1 through stage 4 chronic kidney disease, or unspecified chronic kidney disease; N18.3 Chronic kidney disease, stage 3 (moderate); E03.9 Hypothyroidism, unspecified; F17.210 Nicotine dependence, cigarettes, uncomplicated; F41.9 Anxiety disorder, unspecified; F32.9 Major depressive disorder, single episode, unspecified; J44.9 Chronic obstructive pulmonary disease, unspecified; Z88.1 Allergy status to other antibiotic agents; Z88.8 Allergy status to other drugs, medicaments and biological substances; Z79.899 Other long term (current) drug therapy; Z78.0 Asymptomatic menopausal state; Z79.84 Long term (current) use of oral hypoglycemic drugs
CPT/HCPCS: 36415; 43239; 43450; 45378; 82962; 85025; 85610; 85730; 88305; 88342; J1200; J2250; J3010; 99152

== ENCOUNTER 2019-02-06 09:37 | Emergency (ER) | payer OTHER ==
[~2019-02-06] VITALS: Ht 124.5 cm; Wt 65.8 kg
[2019-02-06 09:45] VITALS: BP 116/68
[2019-02-06] MEDS ORDERED: ALBUTEROL SULF 2.5 MG/0.5ML(0.5%) NEB SOLN NEB ONE (10:15)
[2019-02-06] MEDS ORDERED: methylPREDNISolone SOD SUCC 125 MG/2 ML VL IM ONE (10:15)
[2019-02-06] MEDS ORDERED: IPRATROPIUM BROM 0.5 MG/2.5ML INH SOL NEB ONE (10:15)
== END 2019-02-06 11:07 | disposition home or self-care (01) ==
LOC: ER 09:39
DX: J44.0 Chronic obstructive pulmonary disease with (acute) lower respiratory infection (principal); J20.9 Acute bronchitis, unspecified; E11.9 Type 2 diabetes mellitus without complications; K21.9 Gastro-esophageal reflux disease without esophagitis; E78.5 Hyperlipidemia, unspecified; F41.9 Anxiety disorder, unspecified
CPT/HCPCS: 71046; 93005; 94640; 96372; 99283; J2930; J7611; J7644

== ENCOUNTER → 2020-04-30 | Outpatient (CLI) | payer OTHER ==
[~2020-04-30] MED LIST changes: -BUPR-40 PO; +BUPR150T8 PO; +CYCL10TA6 PO; -CYCL1TAB18 PO; -TRAZ100T2 PO; +TRAZ100T3 PO
[2020-04-30 10:50] LABS: Basophils # (auto) 0.1 10 ^3/uL (0-0.2); Basophils % (auto) 1.2 % (0.0-2.0); Eosinophils # (auto) 0.4 10 ^3/uL (0-0.8); Eosinophils % (auto) 5.2 % (0.0-7.0); Hematocrit 42.5 % (36.0-46.0); Lymphocytes # (auto) 1.3 10 ^3/uL (0.4-5.4); Lymphocytes % (auto) 18.5 % (10.0-50.0); Mean Corpuscular Hemoglobin 28.7 pg (28.0-32.0); Mean Corpuscular Volume 87.1 fL (80.0-100.0); Monocytes # (auto) 0.5 10 ^3/uL (0-1.3); Monocytes % (auto) 6.6 % (0.0-12.0); Neutrophils # (auto) 4.9 10 ^3/uL (1.6-8.6); Neutrophils % (auto) 68.5 % (37.0-80.0); Platelet Count (auto) 218 10^3/uL (140-450); Red Blood Cells 4.88 10^6/uL (4.0-5.20); Red Cell Distribution Width 14.9 % (11.8-14.3); White Blood Cell 7.2 10^3/uL (4.4-10.8)
[2020-04-30 11:16] LABS: Albumin 3.6 g/dL (3.4-5.0); Calcium 8.5 mg/dL (8.5-10.1); Potassium 4.2 mmol/L (3.5-5.1)
[2020-04-30 11:20] LABS: BUN/Creatinine Ratio 9.2; Bilirubin, Total 0.3 mg/dL (0.2-1.0); Total Protein 7.1 g/dL (6.4-8.2)
== END | disposition home or self-care (01) ==
LOC: LAB 10:31
PROVIDERS: ATTEND Internal Medicine
DX: E11.9 Type 2 diabetes mellitus without complications (principal); E78.5 Hyperlipidemia, unspecified; I10 Essential (primary) hypertension; J44.9 Chronic obstructive pulmonary disease, unspecified
CPT/HCPCS: 36415; 80053; 80061; 82043; 83036; 84443; 85025

== ENCOUNTER → 2020-05-04 | Outpatient (CLI) | payer OTHER | END | disposition home or self-care (01) | LOC: LAB 17:48 | PROVIDERS: ATTEND Internal Medicine | DX: E11.9 Type 2 diabetes mellitus without complications (principal); I10 Essential (primary) hypertension; J44.9 Chronic obstructive pulmonary disease, unspecified; E78.5 Hyperlipidemia, unspecified | CPT/HCPCS: 82270 ==

== ENCOUNTER → 2020-09-28 | Outpatient (CLI) | payer OTHER ==
[~2020-09-28] MED LIST changes: -MONT10TA34 OR; +MONT10TA42 OR
[2020-09-28 16:54] LABS: Basophils # (auto) 0.1 10 ^3/uL (0-0.2); Basophils % (auto) 0.8 % (0.0-2.0); Eosinophils # (auto) 0.3 10 ^3/uL (0-0.8); Eosinophils % (auto) 3.7 % (0.0-7.0); Hematocrit 41.4 % (36.0-46.0); Hemoglobin 13.7 g/dL (12.2-16.2); Lymphocytes # (auto) 1.4 10 ^3/uL (0.4-5.4); Lymphocytes % (auto) 17.8 % (10.0-50.0); Mean Corpuscular Hemoglobin 28.6 pg (28.0-32.0); Mean Corpuscular Volume 86.5 fL (80.0-100.0); Monocytes # (auto) 0.5 10 ^3/uL (0-1.3); Monocytes % (auto) 5.9 % (0.0-12.0); Neutrophils # (auto) 5.6 10 ^3/uL (1.6-8.6); Neutrophils % (auto) 71.8 % (37.0-80.0); Nucleated Red Blood Cells % 0.1 %; Red Blood Cells 4.78 10^6/uL (4.0-5.20); Red Cell Distribution Width 14.3 % (11.8-14.3); White Blood Cell 7.8 10^3/uL (4.4-10.8)
[2020-09-28 17:07] LABS: Urine Bacteria FEW /hpf (None Seen); Urine Blood Negative /uL (Negative); Urine Specific Gravity 1.012 (1.001-1.035); Urine WBC 75 /hpf (0 - 5); Urine WBC Clumps PRESENT /hpf (None Seen)
[2020-09-28 17:09] LABS: Albumin 3.7 g/dL (3.4-5.0); Calcium 8.5 mg/dL (8.5-10.1); Potassium 3.9 mmol/L (3.5-5.1)
[2020-09-28 17:10] LABS: INR 0.99 (0.9-1.15); Partial Thromboplastin Time 28.8 sec (23.0-31.2)
[2020-09-28 17:13] LABS: BUN/Creatinine Ratio 11.8; Bilirubin, Total 0.3 mg/dL (0.2-1.0)
== END | disposition home or self-care (01) ==
LOC: LAB 16:33
PROVIDERS: ATTEND Orthopaedic Surgery Adult Reconstructive Orthopaedic Surgery
DX: Z01.818 Encounter for other preprocedural examination (principal); Z20.822 Contact with and (suspected) exposure to COVID-19
CPT/HCPCS: 36415; 80053; 81001; 85025; 85610; 85730

== ENCOUNTER → 2021-04-06 | Outpatient (CLI) | payer OTHER ==
[~2021-04-06] MED LIST changes: +BUPIVACAINE HCL 0.25% P/F 10 ML VIAL ONE; +CYCL-839 PO; -CYCL10TA6 PO; +IOHEXOL 300 MG/ML 100ML BOTTLE IJ ONE; +LIDOCAINE 2%HCL (LOCAL ANESTH.) INJ 20ML MDV ONE; +MONT-8 OR; -MONT10TA42 OR; +methylPREDNISolone ACETATE 80 MG/ML VL ONE
== END | disposition home or self-care (01) ==
LOC: XY 13:01
PROVIDERS: ATTEND Orthopaedic Surgery Adult Reconstructive Orthopaedic Surgery
DX: M25.532 Pain in left wrist (principal); F41.9 Anxiety disorder, unspecified; F32.9 Major depressive disorder, single episode, unspecified; J44.9 Chronic obstructive pulmonary disease, unspecified; Z87.891 Personal history of nicotine dependence; Z82.49 Family history of ischemic heart disease and other diseases of the circulatory system; Z83.3 Family history of diabetes mellitus; Z83.49 Family history of other endocrine, nutritional and metabolic diseases
CPT/HCPCS: 20605; 73100; 77002; J1040; J3490; Q9967; 76000

== ENCOUNTER → 2021-07-16 | Outpatient (CLI) | payer OTHER ==
[~2021-07-16] MED LIST changes: -BUPIVACAINE HCL 0.25% P/F 10 ML VIAL ONE; -IOHEXOL 300 MG/ML 100ML BOTTLE IJ ONE; -LIDOCAINE 2%HCL (LOCAL ANESTH.) INJ 20ML MDV ONE; -methylPREDNISolone ACETATE 80 MG/ML VL ONE
[2021-07-16 11:40] LABS: Urine Bacteria NONE SEEN /hpf (None Seen); Urine Blood Negative /uL (Negative); Urine Mucus FEW (None Seen); Urine Specific Gravity 1.027 (1.001-1.035); Urine WBC 181 /hpf (0 - 5)
[2021-07-16 12:04] LABS: Albumin 3.7 g/dL (3.4-5.0); Calcium 9.4 mg/dL (8.5-10.1); Potassium 4.2 mmol/L (3.5-5.1)
[2021-07-16 12:09] LABS: BUN/Creatinine Ratio 13.3; Bilirubin, Total 0.3 mg/dL (0.2-1.0); Total Protein 7.5 g/dL (6.4-8.2)
== END | disposition home or self-care (01) ==
LOC: LAB 11:08
PROVIDERS: ATTEND Internal Medicine
DX: Z00.00 Encounter for general adult medical examination without abnormal findings (principal); Z12.11 Encounter for screening for malignant neoplasm of colon; J44.9 Chronic obstructive pulmonary disease, unspecified; E11.9 Type 2 diabetes mellitus without complications
CPT/HCPCS: 36415; 80053; 80061; 81001; 82570; 83036; 84443

== ENCOUNTER 2021-09-19 19:06 | Inpatient (IN) | payer OTHER ==
[~2021-09-19] VITALS: Ht 149.9 cm; Wt 69.7 kg
[2021-09-19] MEDS ORDERED: methylPREDNISolone SOD SUCC 125 MG/2 ML VL IV ONE (19:30)
[2021-09-19 20:22] LABS: Albumin 3.7 g/dL (3.4-5.0); BUN/Creatinine Ratio 8.9; Calcium 8.5 mg/dL (8.5-10.1); Magnesium 1.8 mg/dL (1.6-2.6); Potassium 3.8 mmol/L (3.5-5.1)
[2021-09-19 20:25] LABS: Bilirubin, Total 0.3 mg/dL (0.2-1.0); Total Protein 7.6 g/dL (6.4-8.2)
[2021-09-19 20:26] LABS: Basophils # (auto) 0.1 10 ^3/uL (0-0.2); Eosinophils # (auto) 0.3 10 ^3/uL (0-0.8); Eosinophils % (auto) 4.6 % (0.0-7.0); Hematocrit 44.3 % (36.0-46.0); Hemoglobin 14.3 g/dL (12.2-16.2); Lymphocytes # (auto) 0.7 10 ^3/uL (0.4-5.4); Lymphocytes % (auto) 13.1 % (10.0-50.0); Mean Corpuscular Hemoglobin 27.2 pg (28.0-32.0); Mean Corpuscular Hgb Conc. 32.4 g/dL (32.0-36.0); Mean Corpuscular Volume 83.9 fL (80.0-100.0); Monocytes # (auto) 0.4 10 ^3/uL (0-1.3); Monocytes % (auto) 7.7 % (0.0-12.0); Neutrophils # (auto) 4.2 10 ^3/uL (1.6-8.6); Neutrophils % (auto) 73.6 % (37.0-80.0); Red Blood Cells 5.28 10^6/uL (4.0-5.20); Red Cell Distribution Width 14.2 % (11.8-14.3); White Blood Cell 5.6 10^3/uL (4.4-10.8)
[2021-09-19] MEDS ORDERED: IPRATROPIUM BROM 0.5 MG/2.5ML INH SOL HHN ONE (20:45)
[2021-09-19] MEDS ORDERED: ALBUTEROL SULF 2.5 MG/0.5ML(0.5%) NEB SOLN HHN ONE (20:45)
[2021-09-19] MEDS ORDERED: NITROGLYCERIN 0.4 MG SL TAB SL PRN (23:00)
[2021-09-19] MEDS ORDERED: ONDANSETRON HCL 4 MG/2 ML VIAL IV PRN (23:00)
[2021-09-19] MEDS ORDERED: TEMAZEPAM 15 MG CAP PO PRN (23:00)
[2021-09-19] MEDS ORDERED: MORPHINE SULFATE INJ 2 MG/ml SYRG IV PRN (23:00)
[2021-09-19] MEDS ORDERED: DEXTROSE (50%) 50ML SYRG IV PRN (23:00)
[2021-09-19] MEDS: InsuLIN REG 1unit/0.01ml Soln (100units/ml) SC SCH (23:52)
[2021-09-19] MEDS: ACCU-CHEK COMFORT CURVE STRIP VI SCH (23:53)
[2021-09-20 04:29] LABS: Urine Bacteria FEW /hpf (None Seen); Urine Blood Negative /uL (Negative); Urine Specific Gravity 1.007 (1.001-1.035); Urine WBC 128 /hpf (0 - 5)
[2021-09-20 04:32] LABS: Basophils # (auto) 0.1 10 ^3/uL (0-0.2); Eosinophils # (auto) 0 10 ^3/uL (0-0.8); Eosinophils % (auto) 0.1 % (0.0-7.0); Hematocrit 44.4 % (36.0-46.0); Hemoglobin 14.4 g/dL (12.2-16.2); Lymphocytes # (auto) 0.3 10 ^3/uL (0.4-5.4); Lymphocytes % (auto) 3.6 % (10.0-50.0); Mean Corpuscular Hemoglobin 27.4 pg (28.0-32.0); Mean Corpuscular Hgb Conc. 32.4 g/dL (32.0-36.0); Mean Corpuscular Volume 84.6 fL (80.0-100.0); Monocytes # (auto) 0.2 10 ^3/uL (0-1.3); Monocytes % (auto) 2.3 % (0.0-12.0); Neutrophils # (auto) 6.9 10 ^3/uL (1.6-8.6); Red Blood Cells 5.25 10^6/uL (4.0-5.20); Red Cell Distribution Width 14.3 % (11.8-14.3); White Blood Cell 7.4 10^3/uL (4.4-10.8)
[2021-09-20 04:51] LABS: BUN/Creatinine Ratio 9.8; Calcium 8.6 mg/dL (8.5-10.1); Potassium 4.4 mmol/L (3.5-5.1)
[2021-09-20] MEDS: ACCU-CHEK COMFORT CURVE STRIP VI SCH ×3 (05:39→18:30)
[2021-09-20] MEDS: InsuLIN REG 1unit/0.01ml Soln (100units/ml) SC SCH ×3 (05:46→18:42)
[2021-09-20] MEDS: ALBUTEROL SULF 2.5 MG/0.5ML(0.5%) NEB SOLN NEB SCH ×4 (06:01→21:57)
[2021-09-20] MEDS: IPRATROPIUM BROM 0.5 MG/2.5ML INH SOL NEB SCH ×4 (06:02→21:57)
[2021-09-20] MEDS: LEVOTHYROXINE SODIUM 88 MCG TAB PO SCH (06:43)
[2021-09-20] MEDS: buPROPion HCL 75 MG TAB PO SCH ×2 (06:43→18:32)
[2021-09-20] MEDS: ACETAMINOPHEN 325 MG TAB PO PRN ×2 (08:12→16:43)
[2021-09-20] MEDS ORDERED: methylPREDNISolone SOD SUCC 125 MG/2 ML VL IV SCH (10:00)
[2021-09-20] MEDS: ENOXAPARIN SOD 40 MG/0.4 ML SYRINGE SC SCH (10:06)
[2021-09-20] MEDS: LISINOPRIL 10 MG TAB PO SCH (10:07)
[2021-09-20] MEDS ORDERED: IPRATROPIUM BROM 0.5 MG/2.5ML INH SOL NEB PRN (15:00)
[2021-09-20] MEDS ORDERED: ALBUTEROL SULF 2.5 MG/0.5ML(0.5%) NEB SOLN NEB PRN (15:00)
[2021-09-20] MEDS ORDERED: LORazepam 0.5 MG TAB PO PRN (15:00)
[2021-09-20] MEDS: BUDESONIDE (INHALATION) 0.5 MG/2 ML NEB NEB SCH (17:35)
[2021-09-20 18:20] VITALS: BP 147/85
[2021-09-20 18:51] VITALS: BP 149/82
[2021-09-20 22:00] VITALS: BP 148/83
[2021-09-20] MEDS: lamoTRIgine 100 MG TAB PO SCH (22:14)
[2021-09-20] MEDS: methylPREDNISolone SOD SUCC 125 MG/2 ML VL IV SCH (22:14)
[2021-09-20] MEDS: ATORVASTATIN 20 MG TAB PO SCH ×2 (22:15)
[2021-09-20] MEDS: MONTELUKAST SODIUM 10 MG TAB PO SCH (22:31)
[2021-09-20] MEDS: INSULIN LANTUS (GLARGINE) 1 /0.01ml (100units/ml) SC SCH (22:33)
[2021-09-21] MEDS: ACCU-CHEK COMFORT CURVE STRIP VI SCH ×5 (00:17→23:50)
[2021-09-21] MEDS: InsuLIN REG 1unit/0.01ml Soln (100units/ml) SC SCH ×5 (00:24→23:50)
[2021-09-21] MEDS: IPRATROPIUM BROM 0.5 MG/2.5ML INH SOL NEB SCH ×6 (03:11→22:32)
[2021-09-21] MEDS: ALBUTEROL SULF 2.5 MG/0.5ML(0.5%) NEB SOLN NEB SCH ×3 (03:11→10:28)
[2021-09-21 05:00] VITALS: BP 125/84
[2021-09-21 05:19] LABS: Basophils # (auto) 0 10 ^3/uL (0-0.2); Basophils % (auto) 0.1 % (0.0-2.0); Eosinophils # (auto) 0 10 ^3/uL (0-0.8); Hematocrit 43.4 % (36.0-46.0); Hemoglobin 14.2 g/dL (12.2-16.2); Lymphocytes # (auto) 0.4 10 ^3/uL (0.4-5.4); Lymphocytes % (auto) 4.3 % (10.0-50.0); Mean Corpuscular Hemoglobin 27.4 pg (28.0-32.0); Mean Corpuscular Hgb Conc. 32.7 g/dL (32.0-36.0); Mean Corpuscular Volume 83.9 fL (80.0-100.0); Monocytes # (auto) 0.4 10 ^3/uL (0-1.3); Monocytes % (auto) 4.4 % (0.0-12.0); Neutrophils # (auto) 8.9 10 ^3/uL (1.6-8.6); Neutrophils % (auto) 91.2 % (37.0-80.0); Red Blood Cells 5.17 10^6/uL (4.0-5.20); Red Cell Distribution Width 14.5 % (11.8-14.3); White Blood Cell 9.7 10^3/uL (4.4-10.8)
[2021-09-21 05:27] LABS: Calcium 9.2 mg/dL (8.5-10.1); Potassium 3.9 mmol/L (3.5-5.1)
[2021-09-21 05:31] LABS: BUN/Creatinine Ratio 17.1; Magnesium 2.2 mg/dL (1.6-2.6)
[2021-09-21] MEDS: LEVOTHYROXINE SODIUM 88 MCG TAB PO SCH (06:27)
[2021-09-21] MEDS: buPROPion HCL 75 MG TAB PO SCH ×2 (06:27→18:33)
[2021-09-21 09:00] VITALS: BP 123/72
[2021-09-21] MEDS: methylPREDNISolone SOD SUCC 125 MG/2 ML VL IV SCH (09:26)
[2021-09-21] MEDS: ENOXAPARIN SOD 40 MG/0.4 ML SYRINGE SC SCH (09:27)
[2021-09-21] MEDS: LISINOPRIL 10 MG TAB PO SCH (09:27)
[2021-09-21] MEDS ORDERED: PANTOPRAZOLE 40 MG TAB PO SCH (10:00)
[2021-09-21] MEDS: BUDESONIDE (INHALATION) 0.5 MG/2 ML NEB NEB SCH ×2 (10:28→22:33)
[2021-09-21 13:00] VITALS: BP 133/75
[2021-09-21] MEDS: LEVALBUTEROL HCL 1.25 MG/3 ML NEB NEB SCH ×3 (14:38→22:32)
[2021-09-21 16:37] VITALS: BP 119/83
[2021-09-21] MEDS: SUCRALFATE 1 GM TAB PO SCH ×2 (17:32→22:44)
[2021-09-21 22:00] VITALS: BP 133/87
[2021-09-21] MEDS: MONTELUKAST SODIUM 10 MG TAB PO SCH (22:44)
[2021-09-21] MEDS: ATORVASTATIN 20 MG TAB PO SCH (22:44)
[2021-09-21] MEDS: PANTOPRAZOLE 40 MG TAB PO SCH (22:44)
[2021-09-21] MEDS: lamoTRIgine 100 MG TAB PO SCH (22:45)
[2021-09-21] MEDS: INSULIN LANTUS (GLARGINE) 1 /0.01ml (100units/ml) SC SCH (23:49)
[2021-09-22] MEDS: LEVALBUTEROL HCL 1.25 MG/3 ML NEB NEB SCH ×3 (02:47→17:57)
[2021-09-22 05:00] VITALS: BP 136/77
[2021-09-22 05:45] LABS: Calcium 8.9 mg/dL (8.5-10.1); Potassium 4.2 mmol/L (3.5-5.1)
[2021-09-22 05:48] LABS: BUN/Creatinine Ratio 18.8
[2021-09-22] MEDS: ACCU-CHEK COMFORT CURVE STRIP VI SCH ×3 (06:00→18:00)
[2021-09-22] MEDS: IPRATROPIUM BROM 0.5 MG/2.5ML INH SOL NEB SCH ×2 (06:19→17:58)
[2021-09-22] MEDS: BUDESONIDE (INHALATION) 0.5 MG/2 ML NEB NEB SCH ×2 (06:19→17:58)
[2021-09-22] MEDS: LEVOTHYROXINE SODIUM 88 MCG TAB PO SCH (06:33)
[2021-09-22] MEDS: InsuLIN REG 1unit/0.01ml Soln (100units/ml) SC SCH ×3 (06:33→18:00)
[2021-09-22] MEDS: SUCRALFATE 1 GM TAB PO SCH ×3 (06:34→17:00)
[2021-09-22] MEDS: buPROPion HCL 75 MG TAB PO SCH (06:35)
[2021-09-22] MEDS: PANTOPRAZOLE 40 MG TAB PO SCH (08:56)
[2021-09-22] MEDS: LISINOPRIL 10 MG TAB PO SCH (08:56)
[2021-09-22] MEDS: ENOXAPARIN SOD 40 MG/0.4 ML SYRINGE SC SCH (08:58)
[2021-09-22 09:06] VITALS: BP 120/81
[2021-09-22] MEDS ORDERED: predniSONE 20 MG TAB PO SCH (10:00)
[2021-09-22 13:00] VITALS: BP 125/64
[2021-09-22] MEDS ORDERED: ALBUAER3 IN (13:38)
[2021-09-22] MEDS ORDERED: LISIPOW PO (13:38)
[2021-09-22] MEDS ORDERED: PRED20TA2 PO (13:38)
[2021-09-22 15:57] VITALS: BP 125/64
[2021-09-22 16:28] VITALS: BP 137/84
== END 2021-09-22 18:45 | disposition home or self-care (01) | DRG 189 ==
LOC: ER 19:06 → TELE 22:54 → TELE-WESTW 09-20 18:23
PROVIDERS: ADMIT Nurse Practitioner; ATTEND Internal Medicine
DX: J96.20 Acute and chronic respiratory failure, unspecified whether with hypoxia or hypercapnia (principal); J44.1 Chronic obstructive pulmonary disease with (acute) exacerbation; N18.30 Chronic kidney disease, stage 3 unspecified; E11.22 Type 2 diabetes mellitus with diabetic chronic kidney disease; E66.9 Obesity, unspecified; E78.5 Hyperlipidemia, unspecified; E89.0 Postprocedural hypothyroidism; F41.9 Anxiety disorder, unspecified; F32.A Depression, unspecified; Z20.822 Contact with and (suspected) exposure to COVID-19; K76.0 Fatty (change of) liver, not elsewhere classified; Z88.8 Allergy status to other drugs, medicaments and biological substances; Z68.31 Body mass index [BMI] 31.0-31.9, adult; Z83.3 Family history of diabetes mellitus; I12.9 Hypertensive chronic kidney disease with stage 1 through stage 4 chronic kidney disease, or unspecified chronic kidney disease; Z79.4 Long term (current) use of insulin
CPT/HCPCS: 36415; 71045; 80048; 80053; 80061; 81001; 82962; 83036; 83605; 83735; 83880; 84443; 84484; 85025; 85379; 87040; 87086; 93005; 94640; 96374; 96375; 96376; G0378; J1815; J2405

== ENCOUNTER → 2021-11-23 | Outpatient (CLI) | payer OTHER ==
[~2021-11-23] MED LIST changes: +ALBUAER3 IN; +PRED20TA2 PO
== END | disposition home or self-care (01) ==
LOC: RT 09:56
PROVIDERS: ATTEND Internal Medicine Pulmonary Disease
DX: J44.9 Chronic obstructive pulmonary disease, unspecified (principal); R06.00 Dyspnea, unspecified
CPT/HCPCS: 94060

== ENCOUNTER → 2022-01-26 | Emergency (ER) | payer OTHER | END | disposition left against medical advice (07) | LOC: ER 13:18 | DX: R05.9 Cough, unspecified (principal); Z53.21 Procedure and treatment not carried out due to patient leaving prior to being seen by health care provider ==

== ENCOUNTER 2022-01-30 20:31 | Emergency (ER) | payer OTHER ==
[~2022-01-30] VITALS: Ht 149.9 cm; Wt 65.0 kg
[2022-01-30] MEDS ORDERED: IPRATROPIUM BROM 0.5 MG/2.5ML INH SOL NEB ONE (22:15)
[2022-01-30] MEDS ORDERED: predniSONE 20 MG TAB PO ONE (22:15)
[2022-01-30] MEDS ORDERED: ALBUTEROL SULF 2.5 MG/0.5ML(0.5%) NEB SOLN NEB ONE (22:15)
[2022-01-30 22:51] LABS: Basophils # (auto) 0.1 10 ^3/uL (0-0.2); Basophils % (auto) 0.5 % (0.0-2.0); Eosinophils # (auto) 0.1 10 ^3/uL (0-0.8); Eosinophils % (auto) 0.5 % (0.0-7.0); Hematocrit 42.1 % (36.0-46.0); Hemoglobin 13.4 g/dL (12.2-16.2); Lymphocytes # (auto) 2.7 10 ^3/uL (0.4-5.4); Mean Corpuscular Hemoglobin 27.8 pg (28.0-32.0); Mean Corpuscular Hgb Conc. 31.9 g/dL (32.0-36.0); Mean Corpuscular Volume 87.2 fL (80.0-100.0); Monocytes # (auto) 0.6 10 ^3/uL (0-1.3); Monocytes % (auto) 5.2 % (0.0-12.0); Neutrophils # (auto) 7.9 10 ^3/uL (1.6-8.6); Neutrophils % (auto) 69.8 % (37.0-80.0); Red Blood Cells 4.83 10^6/uL (4.0-5.20); Red Cell Distribution Width 14.6 % (11.8-14.3); White Blood Cell 11.3 10^3/uL (4.4-10.8)
[2022-01-30 23:14] LABS: Albumin 3.4 g/dL (3.4-5.0); Magnesium 1.9 mg/dL (1.6-2.6); Potassium 3.7 mmol/L (3.5-5.1)
[2022-01-30 23:16] LABS: BUN/Creatinine Ratio 18.8
[2022-01-30 23:19] LABS: Bilirubin, Total 0.3 mg/dL (0.2-1.0); Total Protein 6.6 g/dL (6.4-8.2)
[2022-01-30] MEDS ORDERED: PRED20TA2 PO (23:45)
[2022-01-31 00:08] VITALS: BP 159/68
== END 2022-01-31 00:09 | disposition home or self-care (01) ==
LOC: ER 20:31
DX: J44.1 Chronic obstructive pulmonary disease with (acute) exacerbation (principal); Z20.822 Contact with and (suspected) exposure to COVID-19
CPT/HCPCS: 36415; 71045; 80053; 83735; 83880; 84484; 85025; 87426; 87804; 93005; 94640; 99285; J7512; J7644

== ENCOUNTER 2022-10-18 18:13 | Emergency (ER) | payer OTHER ==
[~2022-10-18] VITALS: Ht 149.9 cm; Wt 67.7 kg
[~2022-10-18 18:13] MED LIST changes: +TRAZ-228 PO; -TRAZ100T3 PO
[2022-10-18 18:23] VITALS: BP 147/82; PULSE 96; RESP 16; O2SAT 95
[2022-10-18 21:00] LABS: Basophils # (auto) 0.1 10 ^3/uL (0-0.2); Basophils % (auto) 1.8 % (0.0-2.0); Eosinophils # (auto) 0.3 10 ^3/uL (0-0.8); Eosinophils % (auto) 3.9 % (0.0-7.0); Hematocrit 43.3 % (36.0-46.0); Lymphocytes # (auto) 1.7 10 ^3/uL (0.4-5.4); Lymphocytes % (auto) 22.5 % (10.0-50.0); Mean Corpuscular Hemoglobin 27.9 pg (28.0-32.0); Mean Corpuscular Hgb Conc. 32.3 g/dL (32.0-36.0); Mean Corpuscular Volume 86.4 fL (80.0-100.0); Monocytes # (auto) 0.4 10 ^3/uL (0-1.3); Monocytes % (auto) 5.2 % (0.0-12.0); Neutrophils # (auto) 5.1 10 ^3/uL (1.6-8.6); Neutrophils % (auto) 66.6 % (37.0-80.0); Red Blood Cells 5.01 10^6/uL (4.0-5.20); Red Cell Distribution Width 15.7 % (11.8-14.3); White Blood Cell 7.6 10^3/uL (4.4-10.8)
[2022-10-18 21:18] LABS: Albumin 3.4 g/dL (3.4-5.0); Calcium 8.5 mg/dL (8.5-10.1); Potassium 3.6 mmol/L (3.5-5.1)
[2022-10-18 21:21] LABS: BUN/Creatinine Ratio 11.7 (10.0-20.0); Bilirubin, Total 0.2 mg/dL (0.2-1.0)
== END 2022-10-19 00:45 | disposition left against medical advice (07) ==
LOC: ER 18:13
DX: R10.30 Lower abdominal pain, unspecified (principal); N89.8 Other specified noninflammatory disorders of vagina; B37.89 Other sites of candidiasis; E11.22 Type 2 diabetes mellitus with diabetic chronic kidney disease; I12.9 Hypertensive chronic kidney disease with stage 1 through stage 4 chronic kidney disease, or unspecified chronic kidney disease; N18.9 Chronic kidney disease, unspecified; J44.9 Chronic obstructive pulmonary disease, unspecified; K21.9 Gastro-esophageal reflux disease without esophagitis; E78.5 Hyperlipidemia, unspecified; Z88.1 Allergy status to other antibiotic agents; Z88.6 Allergy status to analgesic agent; Z88.8 Allergy status to other drugs, medicaments and biological substances; Z91.012 Allergy to eggs
CPT/HCPCS: 36415; 74176; 80053; 85025

== ENCOUNTER → 2022-12-22 | Outpatient (CLI) | payer OTHER ==
[2022-12-22 13:48] LABS: Alanine Aminotransferase 23 U/L (7-40); Albumin 4.6 g/dL (3.2-4.8); Alkaline Phosphatase 107 U/L (46-116); Anion Gap 3 (5-15); Aspartate Aminotransferase 16 U/L (13-40); BUN/Creatinine Ratio 6.7 (10.0-20.0); Blood Urea Nitrogen 8 mg/dL (9-23); Calcium 9.5 mg/dL (8.5-10.1); Carbon Dioxide 31 mmol/L (20-30); Chloride 103 mmol/L (98-107); Cholesterol 157 mg/dL (< 200); Glucose 243 mg/dL (74-106); HDL Cholesterol 49 mg/dL (40-59); LDL Cholesterol 90 mg/dL (< 100); Potassium 4.5 mmol/L (3.5-5.1); Sodium 137 mmol/L (136-145); Triglycerides 122 mg/dL (< 150)
[2022-12-22 13:49] LABS: Bilirubin, Total 0.4 mg/dL (0.2-1.0); Creatinine, Urine 145.3 mg/dL (30.0-125.0); Total Protein 7.4 g/dL (5.7-8.2)
[2022-12-22 13:53] LABS: Folate (Folic Acid) > 24.00 ng/mL (>5.38)
[2022-12-22 13:55] LABS: Urine Bacteria NONE SEEN /hpf (None Seen); Urine Blood Negative /uL (Negative); Urine Clarity Clear (Clear); Urine Color Yellow (Yellow); Urine Protein, UAD TRACE (Negative); Urine Specific Gravity 1.022 (1.001-1.035); Urine Urobilinogen Normal (Negative); Urine WBC 3 /hpf (0 - 5); Urine pH 5.5 (5.0-8.0)
== END | disposition home or self-care (01) ==
LOC: LAB 13:09
PROVIDERS: ATTEND Internal Medicine
DX: E11.9 Type 2 diabetes mellitus without complications (principal); I10 Essential (primary) hypertension; R91.8 Other nonspecific abnormal finding of lung field
CPT/HCPCS: 36415; 80053; 80061; 81001; 82043; 82140; 82570; 82607; 82746; 83036; 84443

== ENCOUNTER → 2023-02-09 | Outpatient (CLI) | payer OTHER ==
[2023-02-09 16:18] LABS: Folate (Folic Acid) 20.59 ng/mL (>5.38)
[2023-02-10 05:07] LABS: RPR Non Reactive (Non Reactive)
== END | disposition home or self-care (01) ==
LOC: LAB 14:48
PROVIDERS: ATTEND Internal Medicine
DX: E11.22 Type 2 diabetes mellitus with diabetic chronic kidney disease (principal); N18.30 Chronic kidney disease, stage 3 unspecified; M79.672 Pain in left foot; R41.3 Other amnesia
CPT/HCPCS: 82607; 82746; 86592

== ENCOUNTER 2023-03-15 13:06 | Day surgery (SDC) | payer OTHER ==
[2023-03-09 11:01] LABS: Basophils # (auto) 0.1 10 ^3/uL (0-0.2); Basophils % (auto) 0.8 % (0.0-2.0); Eosinophils # (auto) 0.2 10 ^3/uL (0-0.8); Hemoglobin 13.9 g/dL (12.2-16.2); Lymphocytes # (auto) 1.4 10 ^3/uL (0.4-5.4); Lymphocytes % (auto) 13.8 % (10.0-50.0); Mean Corpuscular Hemoglobin 27.1 pg (28.0-32.0); Mean Corpuscular Hgb Conc. 32.3 g/dL (32.0-36.0); Mean Corpuscular Volume 83.7 fL (80.0-100.0); Monocytes # (auto) 0.5 10 ^3/uL (0-1.3); Monocytes % (auto) 4.9 % (0.0-12.0); Neutrophils # (auto) 7.7 10 ^3/uL (1.6-8.6); Neutrophils % (auto) 78.5 % (37.0-80.0); Red Blood Cells 5.14 10^6/uL (4.0-5.20); White Blood Cell 9.8 10^3/uL (4.4-10.8)
[2023-03-09 11:24] LABS: INR 1.02 (0.9-1.15); Partial Thromboplastin Time 30.2 SEC (24.5-34.5); Prothrombin Time 10.7 sec (9.3-11.8)
[2023-03-09 11:43] LABS: Alanine Aminotransferase 24 U/L (7-40); Albumin 4.7 g/dL (3.2-4.8); Alkaline Phosphatase 90 U/L (46-116); Anion Gap 10 (5-15); Aspartate Aminotransferase 20 U/L (13-40); BUN/Creatinine Ratio 5.6 (10.0-20.0); Blood Urea Nitrogen 7 mg/dL (9-23); Carbon Dioxide 26 mmol/L (20-30); Chloride 103 mmol/L (98-107); Glucose 145 mg/dL (74-106); Sodium 139 mmol/L (136-145)
[2023-03-09 11:44] LABS: Bilirubin, Total 0.4 mg/dL (0.2-1.0); Total Protein 7.3 g/dL (5.7-8.2)
[~2023-03-15] VITALS: Ht 149.9 cm; Wt 60.3 kg
[~2023-03-15 13:06] MED LIST changes: -ALBUPOW26; +CLON0.5T4 PO; +DAPA1TAB4 PO; +DICY10CA PO; +FLUT1AER17 IN; -FLUT250M2 INH; +GING550C4 PO; -LAMO150T26 PO; -LORA-205 PO; +MILK175C5 PO; -PRED20TA2 PO; +ROFL1TAB2 PO; -TIOT1AER IN; +VITA-89 PO
[2023-03-15] MEDS ORDERED: SODIUM CHLORIDE LOCK 10 ML ONE (13:51)
[2023-03-15] MEDS ORDERED: LIDOCAINE VISCOUS 2% 15ML UD ONE (13:51)
[2023-03-15 15:12] VITALS: PULSE 93; RESP 13; O2SAT 100
[2023-03-15] MEDS: MIDAZOLAM HCL 5 MG/ML-1ML VIAL ONE ×2 (15:21→15:24)
[2023-03-15] MEDS: diphenhdrAMINE HCL 50 MG/1 ML VL ONE ×2 (15:21→15:23)
[2023-03-15] MEDS: fentaNYL CITRATE 100 MCG/2 ML VL ONE ×2 (15:21→15:24)
[2023-03-15 15:33] VITALS: O2SAT 97
[2023-03-15 16:14] VITALS: BP 124/69; PULSE 85; RESP 15; O2SAT 94
== END 2023-03-15 16:28 | disposition home or self-care (01) ==
LOC: GI 13:06
PROVIDERS: ATTEND Internal Medicine Gastroenterology
DX: K44.9 Diaphragmatic hernia without obstruction or gangrene (principal); R10.9 Unspecified abdominal pain; K31.84 Gastroparesis; K29.50 Unspecified chronic gastritis without bleeding; E11.9 Type 2 diabetes mellitus without complications; Z79.84 Long term (current) use of oral hypoglycemic drugs
CPT/HCPCS: 36415; 43239; 80053; 82962; 85025; 85610; 85730; 88305; 88312; 88342; J1200; J2250; J3010; J7030

== ENCOUNTER → 2023-03-29 | Outpatient (CLI) | payer OTHER ==
[2023-03-29 11:57] LABS: Creatinine, Urine 280.66 mg/dL (30.0-125.0)
== END | disposition home or self-care (01) ==
LOC: LAB 10:49
PROVIDERS: ATTEND Internal Medicine
DX: E11.22 Type 2 diabetes mellitus with diabetic chronic kidney disease (principal); N18.30 Chronic kidney disease, stage 3 unspecified
CPT/HCPCS: 36415; 82043; 82570; 83036; 84443

== ENCOUNTER → 2023-05-23 | Outpatient (CLI) | payer OTHER ==
[2023-05-23 14:37] LABS: Creatinine, Urine 13.43 mg/dL (30.0-125.0)
[2023-05-23 14:42] LABS: Alanine Aminotransferase 15 U/L (7-40); Albumin 4.4 g/dL (3.2-4.8); Alkaline Phosphatase 99 U/L (46-116); Anion Gap 4 (5-15); Aspartate Aminotransferase 17 U/L (13-40); BUN/Creatinine Ratio 10.1 (10.0-20.0); Blood Urea Nitrogen 11 mg/dL (9-23); Calcium 9.7 mg/dL (8.5-10.1); Carbon Dioxide 31 mmol/L (20-30); Chloride 103 mmol/L (98-107); Glucose 99 mg/dL (74-106); Potassium 4.6 mmol/L (3.5-5.1); Sodium 138 mmol/L (136-145)
[2023-05-23 14:43] LABS: Bilirubin, Total 0.3 mg/dL (0.2-1.0); Total Protein 6.9 g/dL (5.7-8.2)
== END | disposition home or self-care (01) ==
LOC: LAB 13:44
PROVIDERS: ATTEND Internal Medicine
DX: E11.9 Type 2 diabetes mellitus without complications (principal); E03.9 Hypothyroidism, unspecified
CPT/HCPCS: 36415; 80053; 82043; 82570; 84443

== ENCOUNTER → 2023-08-30 | Outpatient (CLI) | payer OTHER ==
[2023-08-30 15:39] LABS: Chloride 104 mmol/L (98-107); Potassium 4.8 mmol/L (3.5-5.1); Sodium 138 mmol/L (136-145)
[2023-08-30 15:40] LABS: Anion Gap 4 (5-15); Carbon Dioxide 30 mmol/L (20-30)
[2023-08-30 15:41] LABS: Calcium 9.6 mg/dL (8.5-10.1)
[2023-08-30 15:45] LABS: BUN/Creatinine Ratio 10.3 (10.0-20.0); Blood Urea Nitrogen 12 mg/dL (9-23); Creatinine, Urine 79.17 mg/dL (30.0-125.0); Glucose 178 mg/dL (74-106)
== END | disposition home or self-care (01) ==
LOC: LAB 15:01
PROVIDERS: ATTEND Internal Medicine
DX: E11.22 Type 2 diabetes mellitus with diabetic chronic kidney disease (principal); N18.30 Chronic kidney disease, stage 3 unspecified
CPT/HCPCS: 36415; 80048; 82043; 82570; 83036; 84443

== ENCOUNTER → 2023-09-18 | Outpatient (CLI) | payer OTHER | END | disposition home or self-care (01) | LOC: LAB 07:28 | PROVIDERS: ATTEND Internal Medicine | DX: E11.22 Type 2 diabetes mellitus with diabetic chronic kidney disease (principal); N18.30 Chronic kidney disease, stage 3 unspecified | CPT/HCPCS: 82270 ==

== ENCOUNTER → 2023-11-28 | Outpatient (CLI) | payer OTHER ==
[2023-11-28 12:53] LABS: Alanine Aminotransferase 18 U/L (7-40); Alkaline Phosphatase 135 U/L (46-116); Anion Gap 5 (5-15); Blood Urea Nitrogen 12 mg/dL (9-23); Calcium 10.5 mg/dL (8.7-10.4); Carbon Dioxide 30 mmol/L (20-30); Chloride 102 mmol/L (98-107); Glucose 116 mg/dL (74-106); Potassium 4.7 mmol/L (3.5-5.1); Sodium 137 mmol/L (136-145)
[2023-11-28 12:54] LABS: Albumin 5.1 g/dL (3.2-4.8); Aspartate Aminotransferase 15 U/L (13-40); Bilirubin, Total 0.5 mg/dL (0.2-1.0)
[2023-11-28 13:12] LABS: Triglycerides 141 mg/dL (< 150)
[2023-11-28 13:13] LABS: LDL Cholesterol 75 mg/dL (< 100)
[2023-11-28 13:14] LABS: Cholesterol 151 mg/dL (< 200); HDL Cholesterol 52 mg/dL (40-59)
== END | disposition home or self-care (01) ==
LOC: LAB 11:30
PROVIDERS: ATTEND Internal Medicine
DX: Z12.11 Encounter for screening for malignant neoplasm of colon (principal); E11.22 Type 2 diabetes mellitus with diabetic chronic kidney disease; N18.30 Chronic kidney disease, stage 3 unspecified
CPT/HCPCS: 36415; 80053; 80061; 83036

== ENCOUNTER → 2023-12-08 | Outpatient (CLI) | payer OTHER ==
[2023-12-08 09:52] LABS: Urine Bacteria None Seen /hpf (None Seen)
[2023-12-08 10:32] LABS: Urine Blood Negative /uL (Negative); Urine Clarity Clear (Clear); Urine Color Light-Yellow (Yellow); Urine Protein, UAD TRACE (Negative); Urine Specific Gravity 1.026 (1.001-1.035); Urine Urobilinogen Normal (Negative); Urine WBC 2 /hpf (0 - 5)
[2023-12-08 10:48] LABS: Alanine Aminotransferase 22 U/L (7-40); Albumin 4.5 g/dL (3.2-4.8); Alkaline Phosphatase 115 U/L (46-116); Anion Gap 6 (5-15); Aspartate Aminotransferase 12 U/L (13-40); BUN/Creatinine Ratio 15.3 (10.0-20.0); Bilirubin, Total 0.2 mg/dL (0.2-1.0); Blood Urea Nitrogen 18 mg/dL (9-23); CRP High Sensitivity 0.17 mg/dL (<1.0); Calcium 10.2 mg/dL (8.7-10.4); Carbon Dioxide 30 mmol/L (20-31); Chloride 106 mmol/L (98-107); Glucose 120 mg/dL (74-106); Potassium 4.1 mmol/L (3.5-5.1); Sodium 142 mmol/L (136-145); Total Protein 7.1 g/dL (5.7-8.2)
[2023-12-08 10:53] LABS: Folate (Folic Acid) 12.25 ng/mL (>5.38)
[2023-12-08 11:15] LABS: Lipase 43 U/L (12-53)
== END | disposition home or self-care (01) ==
LOC: LAB 09:33
PROVIDERS: ATTEND Internal Medicine
DX: E11.22 Type 2 diabetes mellitus with diabetic chronic kidney disease (principal); N18.30 Chronic kidney disease, stage 3 unspecified; R76.0 Raised antibody titer; K45.8 Other specified abdominal hernia without obstruction or gangrene
CPT/HCPCS: 36415; 80053; 81001; 82140; 82607; 82746; 83690; 83970; 84443; 86141

== ENCOUNTER → 2023-12-12 | Outpatient (CLI) | payer OTHER | END | disposition home or self-care (01) | LOC: XYW 14:30 | PROVIDERS: ATTEND Internal Medicine | DX: I51.89 Other ill-defined heart diseases (principal); R42 Dizziness and giddiness | CPT/HCPCS: 93306 ==

== ENCOUNTER → 2024-06-17 | Outpatient (CLI) | payer OTHER ==
[2024-06-17 16:24] LABS: Basophils # (auto) 0.1 10 ^3/uL (0-0.2); Basophils % (auto) 1.3 % (0.0-2.0); Eosinophils # (auto) 0.2 10 ^3/uL (0-0.8); Eosinophils % (auto) 2.5 % (0.0-7.0); Hematocrit 47.4 % (36.0-46.0); Hemoglobin 15.3 g/dL (12.2-16.2); Lymphocytes # (auto) 2.1 10 ^3/uL (0.4-5.4); Lymphocytes % (auto) 22.3 % (10.0-50.0); Mean Corpuscular Hemoglobin 27.8 pg (28.0-32.0); Mean Corpuscular Hgb Conc. 32.2 g/dL (32.0-36.0); Mean Corpuscular Volume 86.2 fL (80.0-100.0); Monocytes # (auto) 0.6 10 ^3/uL (0-1.3); Monocytes % (auto) 6.6 % (0.0-12.0); Neutrophils # (auto) 6.3 10 ^3/uL (1.6-8.6); Neutrophils % (auto) 67.3 % (37.0-80.0); Platelet Count (auto) 281 10^3/uL (140-450); Red Blood Cells 5.49 10^6/uL (4.0-5.20); Red Cell Distribution Width 15.8 % (11.8-14.3); White Blood Cell 9.3 10^3/uL (4.4-10.8)
== END | disposition home or self-care (01) ==
LOC: LAB 16:08
PROVIDERS: ATTEND Internal Medicine Pulmonary Disease
DX: J44.9 Chronic obstructive pulmonary disease, unspecified (principal)
CPT/HCPCS: 36415; 85025

== ENCOUNTER → 2024-07-08 | Outpatient (CLI) | payer OTHER ==
[2024-07-08 13:41] LABS: Basophils # (auto) 0.1 10 ^3/uL (0-0.2); Basophils % (auto) 0.8 % (0.0-2.0); Eosinophils # (auto) 0.3 10 ^3/uL (0-0.8); Eosinophils % (auto) 3.6 % (0.0-7.0); Hematocrit 48.5 % (36.0-46.0); Lymphocytes # (auto) 1.5 10 ^3/uL (0.4-5.4); Lymphocytes % (auto) 21.5 % (10.0-50.0); Mean Corpuscular Hemoglobin 28.2 pg (28.0-32.0); Mean Corpuscular Hgb Conc. 32.9 g/dL (32.0-36.0); Mean Corpuscular Volume 85.8 fL (80.0-100.0); Monocytes # (auto) 0.4 10 ^3/uL (0-1.3); Neutrophils # (auto) 4.9 10 ^3/uL (1.6-8.6); Neutrophils % (auto) 69.1 % (37.0-80.0); Nucleated Red Blood Cells % 0.1 %; Platelet Count (auto) 256 10^3/uL (140-450); Red Blood Cells 5.66 10^6/uL (4.0-5.20); Red Cell Distribution Width 15.8 % (11.8-14.3); White Blood Cell 7.1 10^3/uL (4.4-10.8)
[2024-07-08 14:13] LABS: Alanine Aminotransferase 24 U/L (7-40); Anion Gap 8 (5-15); Aspartate Aminotransferase 17 U/L (13-40); BUN/Creatinine Ratio 9.2 (10.0-20.0); Blood Urea Nitrogen 11 mg/dL (9-23); Carbon Dioxide 28 mmol/L (20-31); Chloride 105 mmol/L (98-107); Potassium 4.4 mmol/L (3.5-5.1); Sodium 141 mmol/L (136-145); Total Protein 7.6 g/dL (5.7-8.2)
[2024-07-08 14:14] LABS: Albumin 5.1 g/dL (3.2-4.8); Alkaline Phosphatase 120 U/L (46-116); Bilirubin, Total 0.4 mg/dL (0.2-1.0); Calcium 10.6 mg/dL (8.7-10.4); Glucose 132 mg/dL (74-106)
[2024-07-08 14:39] LABS: Creatinine, Urine 72.59 mg/dL (30.0-125.0)
== END | disposition home or self-care (01) ==
LOC: LAB 13:19
PROVIDERS: ATTEND Internal Medicine
DX: E11.22 Type 2 diabetes mellitus with diabetic chronic kidney disease (principal); N18.31 Chronic kidney disease, stage 3a; J44.9 Chronic obstructive pulmonary disease, unspecified; K76.0 Fatty (change of) liver, not elsewhere classified
CPT/HCPCS: 36415; 80053; 82043; 82570; 83036; 84443; 85025